=== PATIENT | male | born 1940 | race Caucasian/White ===

== ENCOUNTER 2017-01-18 19:30 | Outpatient (CLI) | payer MEDICARE | END 2017-01-18 19:31 | disposition home or self-care (01) | LOC: SLEEPLAB 19:30 | PROVIDERS: ATTEND Internal Medicine | DX: G47.33 Obstructive sleep apnea (adult) (pediatric) (principal); R06.81 Apnea, not elsewhere classified; R53.83 Other fatigue; R06.83 Snoring; E66.9 Obesity, unspecified | CPT/HCPCS: 95811 ==

== ENCOUNTER 2017-07-26 02:36 | Emergency (ER) | payer MEDICARE ==
[2017-07-26] MEDS ORDERED: HYDROcodone/Acetaminophen 5/325 mg Tablet ONE (03:36)
== END 2017-07-26 03:45 | disposition home or self-care (01) ==
LOC: SCSER 02:36
DX: M43.6 Torticollis (principal); E11.9 Type 2 diabetes mellitus without complications; I10 Essential (primary) hypertension; F32.9 Major depressive disorder, single episode, unspecified; F17.220 Nicotine dependence, chewing tobacco, uncomplicated; Z79.82 Long term (current) use of aspirin; Z85.51 Personal history of malignant neoplasm of bladder; Z79.899 Other long term (current) drug therapy
CPT/HCPCS: 99283

== ENCOUNTER 2018-05-03 16:55 | Inpatient (IN) | payer MEDICARE ==
[2018-05-03] MEDS ORDERED: Nitroglycerin 2% Ointment 1 INCH/1 GM Packet ONE (17:27)
[2018-05-03 17:36] LABS: #Basophils 0.1 thou/uL (0.0-0.2); #Eosinphils 0.2 thou/uL (0.0-0.7); #Lymphocytes 1.1 thou/uL (1.20-3.40); #Monocytes 0.4 thou/uL (0.11-0.59); #Neutrophils 6.9 thou/uL (1.40-6.50); %Basophils 0.6 % (0.0-1.0); %Lymphocytes 12.5 % (21.0-51.0); %Monocytes 4.6 % (0.0-10.0); %Neutrophils 80.3 % (42.0-75.0); Hemoglobin 12.8 g/dL (14.0-18.0); Mean Corpuscular HGB CONC 34.1 g/dL (32.0-36.0); Mean Corpuscular Volume 85.2 fL (78.0-98.0); Mean Platelet Volume 10.6 fL (7.4-10.4); Platelet Count 126 thou/uL (130-400); RBC Distribution Width 12.7 % (11.5-14.5); White Blood Cell (WBC) Count 8.5 thou/uL (4.8-10.8)
[2018-05-03 17:50] LABS: ALT (SGPT) 14 U/L (8-55); AST (SGOT) 22 U/L (5-34); Albumin 4.1 g/dL (3.4-4.8); Alkaline Phosphatase 57 U/L (40-150); Anion Gap 18 mmol/L (10-20); BUN (Urea Nitrogen) 22 mg/dL (8.4-25.7); Bilirubin, Total 0.8 mg/dL (0.2-1.2); CK (CPK) 156 U/L (30-200); Calc. Creatinine Clearance 0 mL/min (70-130); Calcium 9.1 mg/dL (7.8-10.44); Carbon Dioxide 18 mmol/L (23-31); Chloride 106 mmol/L (98-107); Estimated GFR-MDRD 49; Globulin 3.7 g/dL (2.4-3.5); Glucose 172 mg/dL (83-110); Potassium 4.1 mmol/L (3.5-5.1); Protein, Total 7.8 g/dL (5.8-8.1); Sodium 138 mmol/L (136-145)
--- NOTE | 2018-05-03 19:04 | RAD ---
FRONTAL RADIOGRAPH CHEST 05/03/18 COMPARISON: 02/19/18. HISTORY: Chest pressure, chest heaviness. FINDINGS: Stable dual lead transvenous pacing device inserted via left subclavian approach. No pneumothorax not ed. Stable prominence of the cardiac silhouette. There is pulmonary vascular congestion with increased linear interstitial density in bilateral perihi lar regions and both lung bases, progressed since the prior exam. There is probable early air space d isease within the perihilar regions in both lung bases as well. Blunting of the costophrenic angle brush ggests small bilateral pleural effusions. IMPRESSION: Findings most consistent with pulmonary edema. Infectious pneumonitis cannot be excluded. Recommend f ollowup imaging following treatment to document resolution. POS: [facility]
[2018-05-03] MEDS ORDERED: cefTRIAXone\\ROCEPHIN 2 GM VIAL ONE (20:04)
[2018-05-03] MEDS ORDERED: Sodium Chloride 0.9% 100 ML ONE ×2 (20:04→21:04)
[2018-05-03 20:48] LABS: Troponin I Less than 0.010 ng/mL (< 0.028)
--- NOTE | 2018-05-03 20:52 | CT ---
EXAM: CT PULMONARY ANGIO OF CHEST WITH 3D RENDERIN05/03/18 HISTORY: History of cancer, shortness of breath, mild D-Dimer elevation. COMPARISON: 06/05/13. There is very extensive bilateral interstitial lung disease with bilateral air bronchograms and bilat eral extensive honeycombing, showing progression when compared to a prior 06/05/13 study. There is grace e more diffuse ground glass opacity changes in the left upper lobe in the perihilar region. Its freda ivable that all of these changes could represent much worsening chronic interstitial lung disease. Th e possibility of acute atypical pneumonia or pneumonitis, particularly in the left upper lobe is cert ainly a consideration. The contrast bolus was very limited. There is no evidence for central pulmonar y artery thrombosis, although the mid and distal branches are inadequately evaluated because of the l ack of contrast density. There are some scattered mediastinal lymph nodes up to 1 cm in short axis in the AP window. Extensive three vessel coronary artery calcific disease. No pleural effusions or isauro cardial effusion. IMPRESSION: Marked worsening extensive bilateral interstitial lung disease with some bronchiectasis, scattered gr ound glass opacity changes particularly in the left upper lobe as well as bilateral honeycombing. The ground glass opacity changes which are somewhat more confluent in the left upper lobe certainly rais e concern for the possibility of acute atypical pneumonia or pneumonitis. Contrast bolus density is v nick limited. No convincing evidence for central pulmonary artery thrombosis. The mid and distal branc hes are not adequately evaluated on this study because of the limited contrast bolus. Minimal lymphad enopathy as above. No pleural effusion or pericardial effusion. POS: [facility]
[2018-05-03] MEDS ORDERED: Azithromycin 500 MG VIAL ONE (21:04)
--- NOTE | 2018-05-03 21:41 | PDOC.FPRHP ---
- History of Present Illness Chief Complaint: chest pain and SOB History of Present Illness: The patient is a 77YOM with a PMH significant for DMII, CKD III, bladder cancer , and HTN who was transferred from [facility] after presenting there with a CC of chest pain and SOB. The patient reported that yesterday while he was up working on his roof, he had sudden onset, non-radiating, left-sided chest pressure with some associated SOB. He says he came down from the roof and went inside to check his BP and noted it be be elevated at 197/79. He then chewed a full baby ASA and after < 30 minutes, the pressure subsided and his BP came down. The patient denies having any recurrent chest pain or pressure since then but did endorse a second episode of SOB that occurred the afternoon of presentation while he was picking up and carrying boxes of [employer] decorations into the attic. He states that he sat down and rested and again, felt back to normal after < 30 minutes. He did endorse some associated generalized fatigue and a productive cough. He also endorsed some occasional PND. He denied any fever/chills, congestion, sore throat, N/V, or diaphoresis. Of note, the patient also reported night sweats that have been occurring every night for the last 2-3 months. He denies any recent unintentional weight loss. ED Course: Rocephin 2g IV, Zithromax 500mg IV, 324mg ASA, nitropaste 1 inch - Allergies/Adverse Reactions Allergies Allergy/AdvReac Type Severity Reaction Status Date / Time No Known Allergies Allergy Verified 05/04/18 00:30 - Home Medications Medication Instructions Recorded Confirmed Type Aspirin [Adult Low Dose Aspirin EC] 81 mg PO DAILY #0 11/04/12 05/04/18 History Sertraline HCl 100 mg PO DAILY 06/05/13 05/04/18 History Lisinopril [Zestril] 10 mg PO DAILY 03/01/15 05/04/18 History Finasteride 5 mg PO DAILY 09/13/16 05/04/18 History Esomeprazole Magnesium [NexIUM] 40 mg PO DAILY 09/26/16 05/04/18 History [place]-3 Fatty Acids/Fish Oil [Fish 1 capsule PO DAILY 05/04/18 05/04/18 History Oil 1,000 mg Capsule] Tamsulosin HCl [Flomax] 0.4 mg PO DAILY 05/04/18 05/04/18 History - History PMHx: bladder cancer, hx of TIAs, HTN, CKD III, DMII PSHx: appendectomy, cholecystectomy, distal tip finger amputation, pacemaker placed for bradycardia, bladder cancer related surgery FHx: brothers: [facility] Father: CVA Social: Smoked since age 12 until 64, 1-1.5 PPD, heavy alcohol use 40 years ago , no drug use, with 6 children - Review of Systems General: reports: weight/appetite/sleep changes (waking up in night unable to sleep), night sweats. denies: fever/chills Respiratory: reports: shortness of breath Cardiovascular: reports: chest pain. denies: palpitation Gastrointestinal: denies: nausea, vomiting, diarrhea, constipation Genitourinary: reports: other (urinary frequency). denies: dysuria Skin: denies: rashes, lesions Musculoskeletal: reports: arthritis/arthralgias (pain related to arthritis). denies: tenderness Neurological: denies: numbness, syncope Psychological: reports: depression (on sertraline). denies: anxiety - Vital signs BP: 180/78 HR: 72 RR: 16 Tmax: 98.1F Pox: 95% on RA Wt: 78.109 kg - Physical Exam Constitutional: NAD, awake, alert and oriented, well developed HEENT: normocephalic and atraumatic, conjunctiva clear, grossly normal vision, MMM Neck: supple, FROM, no JVD, other (tender LAD in left anterior cervical chain) Chest: no-tender to palpation, no lesions Heart: RRR, normal S1/S2, no murmurs/rubs/gallops, pulses present, no edema Lungs: no respiratory distress, good air movement, no wheezing, other (crackles in bilateral lower lobes, worse with inspiration) Abdomen: soft, non-tender, bowel sounds present Musculoskeletal: normal structure, ROM grossly normal Neurological: no focal deficit, CN II-XII intact, normal sensation Skin: no rash/lesions, good turgor, no jaundice Heme/Lymphatic: no unusual bruising or bleeding, no purpura Psychiatric: normal mood and affect, good judgment and insight, intact recent and remote memory FMR H&P: Results - Labs Result Diagrams: 05/04/18 04:50 05/04/18 04:50 Lab results: WBC 8.5 thou/uL (4.8-10.8) 05/03/18 17:19 Hgb 12.8 g/dL (14.0-18.0) L 05/03/18 17:19 Hct 37.5 % (42.0-52.0) L 05/03/18 17:19 MCV 85.2 fL (78.0-98.0) 05/03/18 17:19 Plt Count 126 thou/uL (130-400) L 05/03/18 17:19 Neutrophils % 80.3 % (42.0-75.0) H 05/03/18 17:19 Sodium 138 mmol/L (136-145) 05/03/18 17:19 Potassium 4.1 mmol/L (3.5-5.1) 05/03/18 17:19 Chloride 106 mmol/L (98-107) 05/03/18 17:19 Carbon Dioxide 18 mmol/L (23-31) L 05/03/18 17:19 BUN 22 mg/dL (8.4-25.7) 05/03/18 17:19 Creatinine 1.39 mg/dL (0.7-1.3) H 05/03/18 17:19 Glucose 172 mg/dL (83-110) H 05/03/18 17:19 Calcium 9.1 mg/dL (7.8-10.44) 05/03/18 17:19 Total Bilirubin 0.8 mg/dL (0.2-1.2) 05/03/18 17:19 AST 22 U/L (5-34) 05/03/18 17:19 ALT 14 U/L (8-55) 05/03/18 17:19 Alkaline Phosphatase 57 U/L (40-150) 05/03/18 17:19 Creatine Kinase 156 U/L (30-200) 05/03/18 17:19 B-Natriuretic Peptide 64.5 pg/mL (0-100) 05/03/18 17:19 Serum Total Protein 7.8 g/dL (5.8-8.1) 05/03/18 17:19 Albumin 4.1 g/dL (3.4-4.8) 05/03/18 17: - EKG Interpretation EKst degree AV block - Radiology Interpretation Chest x-ray Status: report reviewed by me ( pulmonary edema but infectious pneumonitis cannot be excluded) CT scan - chest Status: report reviewed by me (worsening extensive B/L ILD w/ concern for possible atypical BANDAR PNA) FMR H&P: A/P - Problem List (1) CAP (community acquired pneumonia) Current Visit: Yes Status: Acute Code(s): J18.9 - PNEUMONIA, UNSPECIFIED ORGANISM (2) ILD (interstitial lung disease) Current Visit: Yes Status: Suspected Code(s): J84.9 - INTERSTITIAL PULMONARY DISEASE, UNSPECIFIED (3) CKD (chronic kidney disease) stage 3, GFR 30-59 ml/min Current Visit: Yes Status: Chronic Code(s): N18.3 - CHRONIC KIDNEY DISEASE, STAGE 3 (MODERATE) (4) Bladder cancer Current Visit: Yes Status: Chronic (5) History of TIA (transient ischemic attack) Current Visit: Yes Status: Chronic Code(s): Z86.73 - PRSNL HX OF TIA (TIA), AND CEREB INFRC W/O RESID DEFICITS (6) Diabetes mellitus Current Visit: No Status: Chronic Code(s): E11.9 - TYPE 2 DIABETES MELLITUS WITHOUT COMPLICATIONS (7) Hypertension Current Visit: No Status: Chronic Code(s): I10 - ESSENTIAL (PRIMARY) HYPERTENSION (8) Chronic night sweats Current Visit: Yes Status: Acute Code(s): R61 - GENERALIZED HYPERHIDROSIS (9) Normocytic anemia Current Visit: Yes Status: Acute Code(s): D64.9 - ANEMIA, UNSPECIFIED (10) Thrombocytopenia Current Visit: Yes Status: Acute Code(s): D69.6 - THROMBOCYTOPENIA, UNSPECIFIED - Plan 77YOM w/ a PMH significant for HTN, h/o TIAs, bladder cancer and DMII who was transferred from [facility] after presenting there with a CC of chest pain and SOB who was found to have a possible BANDAR PNA on chest CT. Suspected CAP: - The patient has been afebrile and satting well on RA since admission; however , both his CXR and chest CT suggested a possible PNA. - s/p IV zithromax & rocephin in the ED. Will continue. Procal and blood cultures pending. - PRN Duonebs ordered. Typical chest pain: - EKG and cardiac enzymes negative so far; however, patient's personal and strong FH give him a heart score of 4. - Last stress test was over 1 year ago but patient reports it was normal. Has never had a heart cath. - Will make NPO at midnight and order an AM stress test. Will consult cardiology PRN based on stress results. - Will continue home ASA dose and order PRN SL nitro. Will d/c nitropaste. Suspected chronic ILD: - Chest CT read as chronic changes consistent with ILD. - Will continue PRN Duonebs and consider pulm consult while patient is in hospital. If not will make sure patient has good follow-up as an outpatient. 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 Chronic night sweats: - Patient reports drenching night sweats for the last 2-3 months. - tender cervical LAD on exam. - Recent negative HIV test. - Quant gold and TSH pending. Will consider Hep C screening as well. h/o bladder CA: - Aware, patient follows closely with urology. CKD stage III: - Aware, patient appears to be at baseline on admission. - Will renally dose meds PRN. DMII: - Aware, patient is not on any medications at this time. Did not tolerate metformin, reports it caused his CKD. - Will get ACHS accuchecks and start on mild SSI. HTN: - Aware, will resume home meds. Normocytic anemia: - Hgb 12.8 on presentation. Likely 2/2 anemia of chronic disease from CKD. - Will continue to monitor. Thrombocytopenia: - Aware. Has been much lower per chart review. - Will continue to monitor. Dispo: Will admit to inpatient telemetry and continue IV Abx for suspected PNA for now. Will get a stress test in the AM and consult cardiology PRN based on results. Abx: zithromax & rocephin day #1 DVT PPX: lovenox GI PPX: none Diet: NPO, meds with sips IVFs: SL CODE STATUS: DNAR FMR H&P: [place] - Pertinent history Yesterday he had chest pain and shortness of breath while working on a roof. Then had elevated BP to systolic 170's. Took aspirin and went away. Today, he became short of breath while working on the roof again and while carrying some totes upstairs. He did not take aspirin today. The SOB resolved in a few minutes after resting on a bucket. He has been getting bad night sweats. In the last few days he more easily fatigued. He reports a lot of black mold in their house because he opened up the roof and then it rained for several days. History of working around asbestos. - Pertinent findings Chest CTA: Worsening bilateral interstitial lung disease with bronchiectasis and honeycombing Gen: No acute distress, resting comfortably in bed Neck: no thyromegaly Heart: RRR, no murmurs, rubs, gallops Lungs: crackles in bilateral lower lobes worse with inspiration, good air movement, rhonchi vs crackles in right and left upper lobe, no wheezing Lymph: left sided tender cervical lymphadenopathy x 1 Ext: No edema in BLE - Plan Date/Time: 05/03/182140 I, [Alyssa Chi], have evaluated this patient and agree with findings/plan as outlined by director internal communications resident. Pertinent changes/additions are listed here. 77 yr old male with PMH of bladder cancer, HTN, CKD stage 3 Suspect community acquired PNA -recent increase in productive cough -started on azithromycin and rocephin, will cont -obtain procalcitonin -check quant gold typical chest pain concerning for stable angina -chest pressure and exertional SOB improved with rest -will order stress test for AM given risk factors for CAD -trop neg x 3, EKG neg Interstitial lung disease -consider inpatient vs outpatient consult to pulmonology -strong hx of tobacco use -hx of work related asbestos exposure Night sweats -tender cervical lymphadenopathy, no axillary lymphadenopathy, afebrile -will check quant gold and TSH -may be related to cancer, no mets mentioned on chest CTA -reports recent HIV screen negative Stage 3 CKD -stable however will monitor with recent contrast use 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 Castillo Diet: NPO after midnight DVT ppx: lovenox Dispo: admit to inpatient, likely 2-3 midnight hospital stay Addendum - Attending - Attending Attestation Date/Time: 05/03/182006 I personally evaluated the patient and discussed the management with Dr. Combs. I agree with the History, Examination, Assessment and Plan documented above with any addition or exceptions noted below. I saw and evaluated the patient while in the [facility] ER. Pt developed shortness of breath and has had chest pain while exerting himself. He has a family history of heart disease. Will get stress test. Pt's CTA shows worsening of an interstitial lung disease but he has no previous diagnosis consistent with this. There is also a possible atypical pneumonia. He has been given rocephin and azithromycin. Getting procal. Pt is not requiring oxygen and is breathing normally. CTA was not able to adequately assess for a peripheral PE and he does have an elevated d-dimer.
[2018-05-03] MEDS ORDERED: Ondansetron PF 4 MG/2 ML Vial IVP PRN (22:45)
[2018-05-03] MEDS ORDERED: Sodium Chloride 0.9% 1,000 ML IV SCH (22:45)
[2018-05-03] MEDS ORDERED: Ondansetron ODT 4 MG TAB SL PRN (22:45)
[2018-05-03] MEDS ORDERED: Acetaminophen 325 MG TAB PO PRN (22:45)
[2018-05-03 23:56] LABS: Troponin I Less than 0.010 ng/mL (< 0.028)
[2018-05-03] MEDS ORDERED: Nitroglycerin 2% Ointment 1 INCH/1 GM Packet TOP SCH (23:59)
[2018-05-04 00:17] VITALS: BMI 26.2
[2018-05-04] MEDS ORDERED: Dextrose 50% Abboject 50 ML SYRINGE SLOW IVP PRN (03:27)
[2018-05-04] MEDS ORDERED: HumaLOG 300 UNITS/3 ML VIAL SC PRN ×2 (03:27)
[2018-05-04] MEDS ORDERED: Dextrose 5% in Water 1,000 ML IV PRN (03:27)
[2018-05-04] MEDS ORDERED: Nitroglycerin 0.4 MG TAB (25 Tab Bottle) SL PRN (03:57)
[2018-05-04 05:44] LABS: #Eosinphils 0.2 thou/uL (0.0-0.7); #Lymphocytes 1.4 thou/uL (1.20-3.40); #Monocytes 0.4 thou/uL (0.11-0.59); #Neutrophils 4.1 thou/uL (1.40-6.50); %Basophils 0.4 % (0.0-1.0); %Eosinophils 3.2 % (0.0-10.0); %Lymphocytes 22.9 % (21.0-51.0); %Neutrophils 66.6 % (42.0-75.0); Hemoglobin 12.2 g/dL (14.0-18.0); Mean Corpuscular HGB CONC 33.3 g/dL (32.0-36.0); Mean Corpuscular Hemoglobin 29.1 pg (27.0-31.0); Mean Corpuscular Volume 87.4 fL (78.0-98.0); Mean Platelet Volume 8.1 fL (7.4-10.4); Platelet Count 116 thou/uL (130-400); RBC Distribution Width 13.2 % (11.5-14.5); Red Blood Cell (RBC) Count 4.19 mill/uL (4.70-6.10); White Blood Cell (WBC) Count 6.2 thou/uL (4.8-10.8)
[2018-05-04 05:52] LABS: Anion Gap 12 mmol/L (10-20); BUN (Urea Nitrogen) 22 mg/dL (8.4-25.7); Calc. Creatinine Clearance 50 mL/min (70-130); Calcium 8.7 mg/dL (7.8-10.44); Carbon Dioxide 24 mmol/L (23-31); Chloride 107 mmol/L (98-107); Estimated GFR-MDRD 51; Glucose 125 mg/dL (83-110); Potassium 3.9 mmol/L (3.5-5.1); Sodium 139 mmol/L (136-145)
[2018-05-04 06:21] LABS: Thyroid Stimulating Hormone 3.1616 uIU/mL (0.35-4.94)
[2018-05-04 06:28] LABS: Hemoglobin A1c 5.5 % (4.0-6.0)
[2018-05-04 06:32] LABS: Cardiac Risk 5.7 (Less than 4.5)
--- NOTE | 2018-05-04 07:21 | PDOC.FM ---
- Subjective Subjective: Mr. Patel is resting comfortably in bed, he denies any more CP or shortness of breath. - Objective Vital Signs & Weight: Vital Signs (12 hours) Temp Pulse Resp BP BP BP Pulse Ox 05/04/18 02:54 99.1 F 73 16 109/59 L 97 05/04/18 02:00 98/51 L 05/03/18 22:45 98.1 F 72 16 180/78 H 95 Weight Weight 78.109 kg Result Diagrams: 05/04/18 04:50 05/04/18 04:50 Phys Exam - Physical Examination Constitutional: NAD HEENT: moist MMs Neck: no nodes Respiratory: no wheezing, no rhonchi poor air movement Cardiovascular: RRR, no significant murmur Gastrointestinal: soft, non-tender Musculoskeletal: no edema, pulses present Neurological: non-focal, moves all 4 limbs Lymphatic: no nodes Psychiatric: normal affect Skin: no rash Dx/Plan (1) Chest pain Code(s): R07.9 - CHEST PAIN, UNSPECIFIED Status: Acute (2) CAP (community acquired pneumonia) Code(s): J18.9 - PNEUMONIA, UNSPECIFIED ORGANISM Status: Acute (3) CKD (chronic kidney disease) stage 3, GFR 30-59 ml/min Code(s): N18.3 - CHRONIC KIDNEY DISEASE, STAGE 3 (MODERATE) Status: Chronic (4) ILD (interstitial lung disease) Code(s): J84.9 - INTERSTITIAL PULMONARY DISEASE, UNSPECIFIED Status: Suspected (5) MARK (acute kidney injury) Code(s): N17.9 - ACUTE KIDNEY FAILURE, UNSPECIFIED Status: Acute (6) Diabetes mellitus Code(s): E11.9 - TYPE 2 DIABETES MELLITUS WITHOUT COMPLICATIONS Status: Chronic (7) Hypertension Code(s): I10 - ESSENTIAL (PRIMARY) HYPERTENSION Status: Chronic - Plan Plan: suspected URI/reactive pnuemonitis: - The patient has been afebrile and satting well on RA since admission - CXR and chest CT suggested a possible PNA, WBC and procal neg - s/p IV zithromax & rocephin in the ED. DC. - blood cultures pending. - PRN Duonebs ordered. Typical chest pain: - EKG and cardiac enzymes negativex3; however, patient's personal and strong FH give him a heart score of 4. - Last stress test was over 1 year ago but patient reports it was normal. Has never had a heart cath. - stress test today. Will consult cardiology PRN based on stress results. - Will continue home ASA dose and order PRN SL nitro. Will d/c nitropaste. Suspected chronic ILD: - Chest CT read as chronic changes consistent with ILD. - Will continue PRN Duonebs and consider pulm consult while patient is in hospital. If not will make sure patient has good follow-up as an outpatient. 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 Chronic night sweats: - Patient reports drenching night sweats for the last 2-3 months. - tender cervical LAD on exam. - Recent negative HIV test. - Quant gold and TSH pending. Will consider Hep C screening as well. h/o bladder CA: - Aware, patient follows closely with urology. CKD stage III: - Aware, patient appears to be at baseline on admission. - Will renally dose meds PRN. DMII: - Aware, patient is not on any medications at this time. Did not tolerate metformin, reports it caused his CKD. - Will get ACHS accuchecks and start on mild SSI. - HbA1c 5.6 HTN: - Aware, will resume home meds. Normocytic anemia: - Hgb 12.8 on presentation. Likely 2/2 anemia of chronic disease from CKD. - Will continue to monitor. Thrombocytopenia: - Aware. Has been much lower per chart review. - Will continue to monitor. DVT PPX: lovenox CODE STATUS: DNAR Dispo: monitor on tele, stress test and consult cardiology PRN based on results. Addendum - Attending - Attending Attestation Date/Time: 05/04/18 1000 I personally evaluated the patient and discussed the management with Dr. Ramires. I agree with the History, Examination, Assessment and Plan documented above with any addition or exceptions noted below. The patient's procal was negative. We will d/c antibiotics. His breathing remains at baseline. Will get stress test today. Pt will need to f/u with pulmonology to continue outpt workup of interstitial lung disease. Will also get vq scan as cta chest was not able to visualize periphery.
[2018-05-04] MEDS: Lisinopril 10 MG TAB PO SCH (10:45)
[2018-05-04] MEDS: Enoxaparin Sodium 40 MG/0.4 ML SYRINGE SC SCH (10:45)
[2018-05-04] MEDS: Finasteride 5 MG TAB PO SCH (10:45)
[2018-05-04] MEDS: Aspirin 81 mg Enteric Coated Tablet PO SCH (10:46)
[2018-05-04] MEDS: Tamsulosin HCl 0.4 MG CAP PO SCH (10:46)
[2018-05-04] MEDS: Fish Oil 1,000 MG CAP PO SCH (10:46)
--- NOTE | 2018-05-04 15:45 | NM ---
VENTILATION PERFUSION LUNG SCAN 05/04/18 HISTORY: Elevated D-dimer and shortness of breath, assess for pulmonary embolism. TECHNIQUE: Ventilation imaging obtained following inhalation of 12.4 millicuries Xenon 1 33 gas by face mask. Pe rfusion imaging obtained following the intravenous administration of 5.2 millicuries technetium 99m l abeled MAA. FINDINGS: Ventilation imaging appears unremarkable. The perfusion imaging demonstrates no focal abnormality. IMPRESSION: Unremarkable VQ scan - very low probability for pulmonary embolism. POS: [facility]
[2018-05-04] MEDS ORDERED: cefTRIAXone\\ROCEPHIN 2 GM in Sodium Chloride 0.9% 100 ML IVPB SCH (20:00)
[2018-05-04] MEDS ORDERED: Azithromycin 500 MG in Sodium Chloride 0.9% 250 ML 250 ML IVPB SCH (21:00)
[2018-05-04] MEDS ORDERED: Azithromycin 250 MG in Sodium Chloride 0.9% 250 ML 250 ML IVPB SCH (21:00)
--- NOTE | 2018-05-05 06:48 | PDOC.FM ---
- Subjective Subjective: Mr. Patel is resting comfortably in bed, he denies any more chest pain or shortness of breath. - Objective Vital Signs & Weight: Vital Signs (12 hours) Temp Pulse Resp BP BP Pulse Ox 05/05/18 05:20 95 05/05/18 02:51 98.1 F 67 15 137/61 95 05/04/18 19:10 95 05/04/18 19:01 99.0 F 73 20 166/81 H 95 Weight Weight 78.109 kg I&O: 05/03/18 05/04/18 05/05/18 06:59 06:59 06:59 Intake Total 761 720 Output Total 200 Balance 561 720 Result Diagrams: 05/04/18 04:50 05/04/18 04:50 Phys Exam - Physical Examination Constitutional: NAD HEENT: moist MMs Neck: no JVD Respiratory: clear to auscultation bilateral Cardiovascular: RRR Gastrointestinal: soft, no distention Musculoskeletal: no edema, pulses present Neurological: moves all 4 limbs Psychiatric: normal affect Skin: no rash Dx/Plan (1) Chest pain Code(s): R07.9 - CHEST PAIN, UNSPECIFIED Status: Acute (2) CAP (community acquired pneumonia) Code(s): J18.9 - PNEUMONIA, UNSPECIFIED ORGANISM Status: Acute (3) CKD (chronic kidney disease) stage 3, GFR 30-59 ml/min Code(s): N18.3 - CHRONIC KIDNEY DISEASE, STAGE 3 (MODERATE) Status: Chronic (4) ILD (interstitial lung disease) Code(s): J84.9 - INTERSTITIAL PULMONARY DISEASE, UNSPECIFIED Status: Suspected (5) MARK (acute kidney injury) Code(s): N17.9 - ACUTE KIDNEY FAILURE, UNSPECIFIED Status: Acute (6) Diabetes mellitus Code(s): E11.9 - TYPE 2 DIABETES MELLITUS WITHOUT COMPLICATIONS Status: Chronic (7) Hypertension Code(s): I10 - ESSENTIAL (PRIMARY) HYPERTENSION Status: Chronic - Plan Plan: suspected URI/reactive pnuemonitis: - The patient has been afebrile and satting well on RA since admission - CXR and chest CT suggested a possible PNA, WBC and procal neg - s/p IV zithromax & rocephin in the ED. DC. - blood cultures pending. - PRN Duonebs ordered. Suspicion for PE - positive Ddimer, tachycardia POA. inconclusive CT - negative VQ scan - stress and VQ cannot be completed in the same day Typical chest pain: - EKG and cardiac enzymes negativex3; however, patient's personal and strong FH give him a heart score of 4. - Last stress test was over 1 year ago but patient reports it was normal. Has never had a heart cath. - stress test tomorrow. Will consult cardiology PRN based on stress results. - Will continue home ASA dose and order PRN SL nitro. Will d/c nitropaste. Suspected chronic ILD: - Chest CT read as chronic changes consistent with ILD. - Will continue PRN Duonebs and consider pulm consult while patient is in hospital. If not will make sure patient has good follow-up as an outpatient. 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 Chronic night sweats: - Patient reports drenching night sweats for the last 2-3 months. - tender cervical LAD on exam. - Recent negative HIV test. - Quant gold pending h/o bladder CA: - Aware, patient follows closely with urology. CKD stage III: - Aware, patient appears to be at baseline on admission. - Will renally dose meds PRN. DMII: - Aware, patient is not on any medications at this time. Did not tolerate metformin, reports it caused his CKD. - Will get ACHS accuchecks and start on mild SSI. - HbA1c 5.6 HTN: - Aware, will resume home meds. Normocytic anemia: - Hgb 12.8 on presentation. Likely 2/2 anemia of chronic disease from CKD. - Will continue to monitor. Thrombocytopenia: - Aware. Has been much lower per chart review. - Will continue to monitor. DVT PPX: lovenox CODE STATUS: DNAR Dispo: monitor on tele, stress test tomorrow. Addendum - Attending - Attending Attestation Date/Time: 05/05/18 9412 I personally evaluated the patient and discussed the management with Dr. Ramires. I agree with the History, Examination, Assessment and Plan documented above with any addition or exceptions noted below. The patient is doing well. VQ scan was negative yesterday. He is scheduled for stress test tomorrow. Pt is not on antibiotics for the pneumonitis because procal was negative and patient is asymptomatic. Pt will need outpt wourkup of the interstitial lung disease noted on CT scan.
[2018-05-05] MEDS: Fish Oil 1,000 MG CAP PO SCH (08:19)
[2018-05-05] MEDS: Finasteride 5 MG TAB PO SCH (08:19)
[2018-05-05] MEDS: Lisinopril 10 MG TAB PO SCH (08:20)
[2018-05-05] MEDS: Tamsulosin HCl 0.4 MG CAP PO SCH (08:20)
[2018-05-05] MEDS: Enoxaparin Sodium 40 MG/0.4 ML SYRINGE SC SCH (08:20)
[2018-05-05] MEDS: Aspirin 81 mg Enteric Coated Tablet PO SCH (08:20)
[2018-05-05] MEDS ORDERED: Acetaminophen 325 MG TAB PO PRN (20:43)
--- NOTE | 2018-05-06 06:13 | PDOC.FM ---
- Subjective Subjective: No overnight events. Patient resting comfortably in chair at the bedside. No complaints or concerns this morning. - Objective Vital Signs & Weight: Vital Signs (12 hours) Temp Pulse Resp BP Pulse Ox 05/06/18 05:42 100 05/06/18 04:45 97.7 F 60 14 117/59 L 100 05/05/18 23:40 129/68 05/05/18 19:50 98.2 F 68 20 178/79 H 98 Weight Weight 76.385 kg I&O: 05/04/18 05/05/18 05/06/18 06:59 06:59 06:59 Intake Total 227 120 9380 Output Total 200 Balance 303 920 6059 Result Diagrams: 05/04/18 04:50 05/06/18 12:48 Phys Exam - Physical Examination Constitutional: NAD HEENT: PERRLA, moist MMs, sclera anicteric Neck: full ROM Respiratory: clear to auscultation bilateral Cardiovascular: RRR Gastrointestinal: soft, non-tender, no distention, positive bowel sounds Musculoskeletal: no edema, pulses present Neurological: moves all 4 limbs Psychiatric: normal affect, A&O x 3 Skin: no rash Dx/Plan (1) CAP (community acquired pneumonia) Code(s): J18.9 - PNEUMONIA, UNSPECIFIED ORGANISM Status: Acute (2) Chest pain Code(s): R07.9 - CHEST PAIN, UNSPECIFIED Status: Acute (3) Chronic night sweats Code(s): R61 - GENERALIZED HYPERHIDROSIS Status: Acute (4) Normocytic anemia Code(s): D64.9 - ANEMIA, UNSPECIFIED Status: Acute (5) Thrombocytopenia Code(s): D69.6 - THROMBOCYTOPENIA, UNSPECIFIED Status: Acute (6) Bladder cancer Status: Chronic (7) CKD (chronic kidney disease) stage 3, GFR 30-59 ml/min Code(s): N18.3 - CHRONIC KIDNEY DISEASE, STAGE 3 (MODERATE) Status: Chronic (8) History of TIA (transient ischemic attack) Code(s): Z86.73 - PRSNL HX OF TIA (TIA), AND CEREB INFRC W/O RESID DEFICITS Status: Chronic (9) ILD (interstitial lung disease) Code(s): J84.9 - INTERSTITIAL PULMONARY DISEASE, UNSPECIFIED Status: Suspected (10) Diabetes mellitus Code(s): E11.9 - TYPE 2 DIABETES MELLITUS WITHOUT COMPLICATIONS Status: Chronic (11) Hypertension Code(s): I10 - ESSENTIAL (PRIMARY) HYPERTENSION Status: Chronic - Plan Plan: Suspected URI/reactive pnuemonitis - The patient has been afebrile and satting well on RA since admission - CXR and chest CT suggested a possible PNA; WBC and procal neg - s/p IV zithromax & rocephin in the ED. DC due to WBC and procal neg - blood cultures no growth at 48 hrs - PRN Duonebs ordered Suspicion for PE - positive Ddimer, tachycardia POA. Inconclusive CT - Negative VQ scan - stress and VQ cannot be completed in the same day Typical chest pain - EKG and cardiac enzymes negativex3; however, patient's personal and strong FH give him a heart score of 4. - Last stress test was over 1 year ago but patient reports it was normal. Has never had a heart cath. - stress test for 05/06. Will consult cardiology PRN based on stress results. - Will continue home ASA dose and order PRN SL nitro. Will d/c nitropaste. Suspected chronic ILD - Chest CT read as chronic changes consistent with ILD. - Will continue PRN Duonebs and consider pulm consult while patient is in hospital. If not will make sure patient has good follow-up as an outpatient. 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 Chronic night sweats - Patient reports drenching night sweats for the last 2-3 months - tender cervical LAD on exam - Recent negative HIV test - Quant gold pending h/o bladder CA: - Aware, patient follows closely with urology CKD stage III - Aware, patient appears to be at baseline on admission. - Will renally dose meds PRN. DMII - Aware, patient is not on any medications at this time. Did not tolerate metformin, reports it caused his CKD. - Will get ACHS accuchecks and start on mild SSI. - HbA1c 5.6 HTN - Aware, will resume home meds. Normocytic anemia - Hgb 12.8 on presentation. Likely 2/2 anemia of chronic disease from CKD. - Will continue to monitor. Thrombocytopenia - Aware. Has been much lower per chart review. - Will continue to monitor. DVT PPX: lovenox CODE STATUS: DNAR Dispo: monitor on tele, stress test 05/06. Addendum - Attending - Attending Attestation Date/Time: 05/06/18 2059 I personally evaluated the patient and discussed the management with Dr. Ivey I agree with the History, Examination, Assessment and Plan documented above with any addition or exceptions noted below. Patient for stress testing today note CT Chest finding and PMHX occupational exposure(asbestos) concern ILD consult Pulmonary and await Stress results today. QFT ordered results pending. repeat BMP today had past reaction metformin.
[2018-05-06] MEDS: Fish Oil 1,000 MG CAP PO SCH (06:16)
[2018-05-06] MEDS: Tamsulosin HCl 0.4 MG CAP PO SCH (06:16)
[2018-05-06] MEDS: Aspirin 81 mg Enteric Coated Tablet PO SCH (06:16)
[2018-05-06] MEDS: Finasteride 5 MG TAB PO SCH (06:16)
[2018-05-06] MEDS: Enoxaparin Sodium 40 MG/0.4 ML SYRINGE SC SCH (06:17)
[2018-05-06] MEDS: Lisinopril 10 MG TAB PO SCH (07:54)
[2018-05-06] MEDS ORDERED: ADENOSINE 60 MG/20 ML VIAL ONE (10:31)
[2018-05-06 13:38] LABS: Anion Gap 13 mmol/L (10-20); BUN (Urea Nitrogen) 18 mg/dL (8.4-25.7); Calc. Creatinine Clearance 48 mL/min (70-130); Calcium 9.6 mg/dL (7.8-10.44); Carbon Dioxide 24 mmol/L (23-31); Chloride 104 mmol/L (98-107); Estimated GFR-MDRD 51; Glucose 159 mg/dL (83-110); Potassium 3.9 mmol/L (3.5-5.1); Sodium 137 mmol/L (136-145)
--- NOTE | 2018-05-06 14:21 | NM ---
RADIONUCLIDE STRESS AND REST MYOCARDIAL PERFUSION SCAN WITH CT ATTENUATION CORRECTION AND SPECT IMAGI NG WITH LEFT VENTRICULAR WALL MOTION EVALUATION AND EJECTION FRACTION: HISTORY: Chest pain. FINDINGS: Adenosine protocol. Heterogeneous uptake of radiotracer throughout the left ventricular myocardium. No focal perfusion de fect or reversibility. QGS analysis of gated SPECT images shows no focal wall motion abnormalities. Ejection fraction calculated at 71%. IMPRESSION: 1. Normal myocardial perfusion scan. 2. Normal LVEF. POS: [facility]
[2018-05-06 16:18] VITALS: BP 162/75; TEMP 97.3
--- NOTE | 2018-05-07 14:06 | DIS ---
DATE OF ADMISSION: 05/03/2018 DATE OF DISCHARGE: 05/06/2018 RESIDENT: Catrina Ivey MD ADMITTING ATTENDING: Traci Pedraza MD DISCHARGE ATTENDING: Fran Chen MD CONSULTS: None. PROCEDURES: None. PRIMARY DIAGNOSES: 1. Upper respiratory tract infection/reactive pneumonitis. 2. Difficult chest pain. SECONDARY DIAGNOSES: 1. Chronic night sweats. 2. Normocytic anemia. 3. Thrombocytopenia. 4. Bladder cancer. 5. Chronic kidney disease, stage 3. 6. History of transient ischemic attacks. 7. Interstitial lung disease. 8. Diabetes mellitus. 9. Hypertension. DISCHARGE MEDICATIONS: 1. Aspirin 81 mg oral daily. 2. Sertraline 100 mg oral daily. 3. Lisinopril 10 mg oral daily. 4. Finasteride 5 mg oral daily. 5. Nexium 40 mg oral daily. 6. Flomax 0.4 mg oral daily. 7. [place]-3 fatty acid one capsule oral daily. 8. Victoza 0.6 mg subcu every morning. Discontinued medications: None. HISTORY OF PRESENT ILLNESS/HOSPITAL COURSE: This is a 77-year-old male with past medical history significant for diabetes, CKD stage 3, bladder cancer, and hypertension, who was transferred from [facility] ER, presenting with chief complaint of chest pain and shortness of breath. 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 After this episode, the patient checked his blood pressure and found it to be 197/79. The patient chewed a baby aspirin and after less than 30 minutes, the pressure subsided and his blood pressure came down. The patient did endorse a 2nd episode of shortness of breath that occurred later that afternoon while he was picking up and carrying boxes of [employer] decorations and attic. After resting for less than 30 minutes, he felt back to baseline. The patient endorsed a productive cough. The patient endorses occasional paroxysmal nocturnal dyspnea. The patient was given 2 g IV Rocephin, Zithromax, aspirin, and nitroglycerin paste in the ER. The patient's vital signs on presentation were significant for a blood pressure of 180/78. The patient's EKG showed a first-degree AV block. Chest x-ray showed pulmonary edema. CT scan showed worsening extensive bilateral interstitial lung disease with concern for atypical left upper lobe pneumonia. The patient had a procalcitonin of 0.07, making a bacterial cause for pneumonia unlikely. The patient had a creatinine of 1.37, which seems to be his baseline. The patient had a hemoglobin of 12.8 on admission, which was also at his baseline. The patient remained afebrile throughout his stay. Blood cultures remain negative after 48 hours. The patient was given DuoNeb p.r.n. The patient was scheduled for a stress test that resulted negative for any ischemia. 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 Encouraged outpatient followup with Pulmonology. The patient was found to have a positive D-dimer. V/Q scan was performed that was negative. The patient's diabetes remained well controlled throughout his stay. DISPOSITION: Stable. DISCHARGE INSTRUCTIONS: 1. Location: Home. 2. Diet: Diabetic, heart healthy, and low-sodium. 3. Activity: Ad greg. 4. Followup: Follow up with Dr. Castillo within [address] Pierre within 10 days. Job ID: [id number]
== END 2018-05-06 18:12 | disposition home or self-care (01) | DRG 313 ==
LOC: SCSER 16:55 → 2NO 22:12
PROVIDERS: ADMIT Family Medicine; ATTEND Family Medicine
DX: R07.9 Chest pain, unspecified (principal); J84.9 Interstitial pulmonary disease, unspecified; E11.22 Type 2 diabetes mellitus with diabetic chronic kidney disease; I12.9 Hypertensive chronic kidney disease with stage 1 through stage 4 chronic kidney disease, or unspecified chronic kidney disease; N18.3 Chronic kidney disease, stage 3 (moderate); R61 Generalized hyperhidrosis; D64.9 Anemia, unspecified; D69.6 Thrombocytopenia, unspecified; C67.9 Malignant neoplasm of bladder, unspecified; Z79.82 Long term (current) use of aspirin; Z86.73 Personal history of transient ischemic attack (TIA), and cerebral infarction without residual deficits; Z87.891 Personal history of nicotine dependence; Z90.49 Acquired absence of other specified parts of digestive tract; Z95.0 Presence of cardiac pacemaker; Z89.029 Acquired absence of unspecified finger(s)
CPT/HCPCS: 36415; 36416; 71045; 71275; 78452; 78582; 80048; 80053; 80061; 82550; 83036; 83880; 84145; 84443; 84484; 85025; 85379; 86480; 87040; 93005; 93017; 96365; 96367; A9500; A9540; A9558; J0153; J0456; J0696; J1650; J7050